=== PATIENT | female | born 1950 | race Caucasian/White ===

== ENCOUNTER 2017-05-15 17:09 | Emergency (ER) | payer OTHER ==
[~2017-05-15] VITALS: Ht 152.4 cm; Wt 81.1 kg
[~2017-05-15 17:09] MED LIST: CIPR500T3 PO; HYDR-3240 PO; LEVO100T PO
[2017-05-15] MEDS ORDERED: SODIUM CHLORIDE FLUSH 10ML SYR IVF ONE (17:30)
[2017-05-15 17:54] LABS: ASPARTATE AMINO TRANSFERASE 47 U/L (15-37); BLOOD UREA NITROGEN 19 mg/dL (7-18)
[2017-05-15] MEDS ORDERED: SODIUM CHLORIDE 0.9% 1,000ML IVBOLUS ONE (19:30)
[2017-05-15 19:46] LABS: IS PT STATUS REG ER OR PRE ER? YES
[2017-05-15 21:31] VITALS: BP 158/95
== END 2017-05-15 23:01 | disposition home or self-care (01) ==
LOC: ED 20:52
DX: E03.9 Hypothyroidism, unspecified (principal); N39.0 Urinary tract infection, site not specified; R68.89 Other general symptoms and signs; I10 Essential (primary) hypertension; E11.9 Type 2 diabetes mellitus without complications; Z90.710 Acquired absence of both cervix and uterus
CPT/HCPCS: 36415; 74000; 80053; 81001; 84439; 84443; 84484; 85025; 87077; 87086; 93005; 96360; 96361; 99285; J7030; 87186

== ENCOUNTER 2021-05-11 14:54 | Emergency (ER) | payer MEDICAID, MEDICARE, OTHER ==
[~2021-05-11] VITALS: Ht 152.4 cm; Wt 82.0 kg
[~2021-05-11 14:54] MED LIST changes: -CIPR500T3 PO; +CIPR500T4 PO; +HYDR-2214 PO; -HYDR-3240 PO
--- NOTE | 2021-05-11 15:24 | NUR ---
CC OF SUDDEN ONSET LAI TODAY, AND LEFT EYE REDNESS, SWELLING, AND PAIN X 1 MONTH. PT ANSWERS ORIENTATION QUESTIONS APPROPRIATELY HOWEVER IS STILL A POOR HISTORIAN. SO HAS SHOWN UP IN MIDDLE OF ASSESSMENT AND HAS BEEN ABLE TO HELP ANSWER PMH QUESTIONS. PT IS UNABLE TO OPEN LEFT EYE. SO STATES PT HAD LASIK EYE SURGERY IN 2014 AND SINCE THEN HAS HAD EYE INFECTIONS ON AND OFF, MOSTLY IN THE LEFT EYE. SO STATES PT HAD A1C CHECKED "A FEW YEARS AGO AND IT WAS 4". DENIES IF PT HAS SINCE CHECKED SUGARS OR SEEN MD. SO ALSO STATES PT HAS HAD FALLS AT HOME RECENTLY AND PT REFUSES TO TAKE ANY MEDICATIONS.
[2021-05-11] MEDS ORDERED: DIPHENHYDRAMINE 50 MG/ML, 1ML IVPush ONE (15:30)
[2021-05-11] MEDS ORDERED: SODIUM CHLORIDE 0.9% 1,000ML IVBOLUS ONE (15:30)
[2021-05-11] MEDS ORDERED: FLUORESCEIN OPHTHALMIC 1 MG STRIP EACHEYE ONE (15:30)
[2021-05-11] MEDS ORDERED: PROPARACAINE OPHTH 0.5%, 15ML EACHEYE ONE (15:30)
[2021-05-11] MEDS ORDERED: METOCLOPRAMIDE 5 MG/ML, 2ML IVPush ONE (15:30)
--- NOTE | 2021-05-11 15:48 | NUR ---
PT UNABLE TO USE LEFT EYE FOR VA'S. VA'S DONE WITH RIGHT EYE.
[2021-05-11] MEDS ORDERED: PROPARACAINE OPHTH 0.5%, 15ML ONE (16:23)
[2021-05-11] MEDS ORDERED: FLUORESCEIN OPHTHALMIC 1 MG STRIP ONE (16:23)
[2021-05-11 16:27] LABS: BASOPHILS % (AUTO) 1 % (0-1); EOSINOPHILS % (AUTO) 3 % (1-7); LYMPHOCYTES % (AUTO) 21 % (22-44); MEAN CORPUSCULAR HEMOGLOBIN 31.8 pg (27.0-34.8); MEAN CORPUSCULAR HGB CONC 33.1 g/dL (32.4-35.8); MEAN PLATELET VOLUME 8.4 fL (7.4-10.4); MONOCYTES % (AUTO) 6 % (2-9); NEUTROPHILS % (AUTO) 68 % (42-75); PLATELET COUNT 313 x10^3/uL (130-400); RED BLOOD COUNT 4.43 x10^6/uL (3.82-5.3); RED CELL DISTRIBUTION WIDTH 14.3 % (9.6-15.2)
[2021-05-11] MEDS ORDERED: DIPHENHYDRAMINE 50 MG/ML, 1ML ONE (16:31)
[2021-05-11] MEDS ORDERED: METOCLOPRAMIDE 5 MG/ML, 2ML ONE (16:31)
[2021-05-11 16:37] LABS: ALBUMIN 4.1 g/dL (3.4-5.0); ANION GAP 3 mmol/L (5-15); CALCIUM 9.2 mg/dL (8.5-10.1); CHLORIDE 109 mmol/L (98-107); CREATININE 1.09 mg/dL (0.55-1.02)
[2021-05-11 17:02] LABS: FREE T4 (FREE THYROXINE) 0.18 ng/dL (0.76-1.46)
[2021-05-11 17:30] VITALS: BP 146/68
--- NOTE | 2021-05-11 17:51 | NUR ---
EYE MD AT BEDSIDE
== END 2021-05-11 19:59 | disposition home or self-care (01) ==
LOC: ED 19:40
DX: R51.9 Headache, unspecified (principal); E03.9 Hypothyroidism, unspecified; H57.12 Ocular pain, left eye; R50.9 Fever, unspecified; E11.9 Type 2 diabetes mellitus without complications; I10 Essential (primary) hypertension
CPT/HCPCS: 36415; 70450; 80048; 82040; 84439; 84443; 85025; 96361; 96374; 96375; 99284; J1200; J2765; J7030